=== PATIENT | female | born 1935 | race Caucasian/White ===

== ENCOUNTER → 2019-12-12 | Outpatient (CLI) | payer MEDICARE ==
[~2019-12-12] MED LIST: CARV3.1210 PO; CELE200C PO; CLOP75TA PO; HYDR-3164 PO; LEVO75TA5 PO; SIMV40TA18 PO
--- NOTE | 2019-12-12 10:51 | KCIC ---
LUMBAR SPINE WO CONTRAST Date: 12/12/2019 9:30 AM Indication: Low back pain, radiculopathy, lower extremity weakness Comparison: None. Technique: Multi-planar multi-weighted magnetic resonance imaging of the lumbar spine was performed without intravenous contrast using the standard lumbar spine protocol. FINDINGS: Motion artifact degrades image quality on all sequences. Straightening of the lumbar lordosis. 4 mm anterolisthesis at L4-5. No acute fracture. Mild to moderate multilevel degenerative disc desiccation and disc height loss. No marrow replacing process to suggest malignancy. The conus terminates at a normal level. No abnormal signal is seen within the visualized distal spinal cord. No clumping of intrathecal nerve roots. No soft tissue abnormality in the visualized abdomen or pelvis. T12-L1: No disc bulge. No facet arthropathy. No significant spinal stenosis or neural foraminal narrowing. L1-L2: No disc bulge. No facet arthropathy. No significant spinal stenosis or neural foraminal narrowing. L2-L3: Disc bulge. Mild facet arthropathy. No significant spinal stenosis or neural foraminal narrowing. L3-L4: Disc bulge. Mild facet arthropathy. No significant spinal stenosis. Mild bilateral neural foraminal narrowing. L4-L5: Disc bulge. Moderate right greater than left facet arthropathy. Mild spinal stenosis. Mild bilateral neural foraminal narrowing. L5-S1: Disc bulge. Mild facet arthropathy. No significant spinal stenosis or neural foraminal narrowing. IMPRESSION: [id number] lumbar spondylosis, as detailed above. No high-grade spinal canal stenosis. Electronically signed by: Edvin Metz MD (12/12/2019 10:49 AM) [id number]
== END | disposition home or self-care (01) ==
LOC: KCIC MRI 09:17
PROVIDERS: ATTEND Family Medicine
DX: M47.26 Other spondylosis with radiculopathy, lumbar region (principal); M51.16 Intervertebral disc disorders with radiculopathy, lumbar region; M12.88 Other specific arthropathies, not elsewhere classified, other specified site; M40.46 Postural lordosis, lumbar region; M53.3 Sacrococcygeal disorders, not elsewhere classified
CPT/HCPCS: 72148

== ENCOUNTER → 2019-12-15 | Outpatient (CLI) | payer MEDICARE, OTHER ==
--- NOTE | 2019-12-15 15:22 | PAIN ---
DATE OF SERVICE: 12/15/2019 INITIAL CONSULTATION FOR PAIN CLINIC CHIEF COMPLAINT: Low back and left lower extremity pain. HISTORY OF PRESENT ILLNESS: This is an 84-year-old female who presents with history of pain in the low back, left lower extremity since about September of this year. The patient reports no specific injury or action that she is aware of, but she has been transporting back and forth prior to that for some followup with previous lung cancer and radiation treatments and was getting in and out of a fairly tall van for transport at multiple times and this has exacerbated some of the pain in her low back and now traveling into her left posterior gluteus, posterolateral thigh, lateral anterior thigh on the left side only. The patient reports significant weakness; however, in the left leg and she is walking with a significant antalgic gait favoring the left lower extremity. The patient reports it is better with sitting or lying down, but still can awaken her from sleep about once at night. The patient reports it does not affect her bowel or bladder control, but does affect her ability to walk significantly. She is using a cane and a walker at times to ambulate. The patient reports no complete loss of function, but significant fatigability of the lower extremity on the left. The patient reports it is sharp and stabbing across the back, throbbing, aching, shooting into the leg, intermittent in intensity, but worse with walking, standing, changing positions, better with sitting or lying down, again radiating to the left lower extremity, aching and cold at times. The patient rates her disability rating from 0-10, 10 being the worst, is a 9 with family and home responsibilities, recreation, social activity and self-care, 8 with life support activities. The patient did have an MRI scan of the lumbar spine showing some [id number] lumbar spondylosis without high-grade stenosis at L3-L4 and L4-L5 with mild facet arthropathy and moderate right greater than left facet arthropathy, mild spinal stenosis at L4-L5 with mild bilateral neural foraminal narrowing and mild bilateral neural foraminal narrowing at the L3-L4 level as well. PAST MEDICAL HISTORY: Significant for hearing loss, wearing hearing aids, cataracts, glasses, history of breast cancer as well as lung cancer. Quit smoking in September of this year, 60+ pack year history prior to that, history of myocardial infarction in 1993. Previous blood clots. History of arthritis. PREVIOUS SURGERY: Include mastectomy on the left and heart catheterization as well as radiation treatment for the lung cancer. CURRENT MEDICATIONS: Include Plavix, simvastatin, carvedilol, hydrocodone, Celebrex, levothyroxine. ALLERGIES: The patient has no known drug allergies. FAMILY HISTORY: Significant for heart disease and pancreatic cancer. SOCIAL HISTORY: The patient does not smoke, quit in September of this year. Previous [id number] history prior to this September. Drinks alcohol very rarely. Does not use any illegal, illicit or recreational drugs. The patient reports she is , lives locally in [place], [place] and is currently retired. REVIEW OF SYSTEMS: The patient's review of systems is positive for those items mentioned in history of present illness. All systems reviewed and otherwise negative. It is complete, full and well documented on the patient's chart. PHYSICAL EXAMINATION: VITAL SIGNS: The patient's blood pressure 143/81, pulse 94, respirations 18, temperature 97.8 degrees Fahrenheit, height is 5 feet 4 inches, weight is 105 pounds. GENERAL: The patient is awake, alert, oriented, appropriate, very pleasant demeanor. The patient is accompanied by her daughter. HEENT: Shows normocephalic, atraumatic. Extraocular movements are intact and symmetrical. Oral cavity shows mucous membranes moist and pink. Dentition is intact. NECK: Shows anterior throat supple without palpable lymphadenopathy noted. Swallow reflex symmetrical. CHEST: Shows normal on inspection. Breath sounds are clear bilaterally. HEART: Shows S1, S2 clear. No murmurs auscultated. ABDOMEN: Soft, nontender, nondistended. No palpable organomegaly is noted. No rebound or guarding demonstrated. BACK: Shows spine grossly in the midline. Normal appearing thoracic kyphosis and slight flattening of lumbar lordotic curvature. Lumbar paraspinous muscle shows symmetrical on inspection, on palpation shows some moderate tenderness diffusely bilaterally going diffusely without significant radiation. The patient has good rotational motion of lumbar spine, both laterally as well as extension and flexion without significant pain, no tenderness over the spinous processes, sacrum or sacroiliac regions. EXTREMITIES: Lower extremity deep tendon reflexes at 2+ patellar, 1+ tendo-calcaneus tendons. Motor exam is approximately 5/5 on the right with dorsiflexion, extension, quadriceps and hamstring flexion and 4/5 on the left with dorsiflexion, extension, quadriceps and hamstring flexion is approximately 2 on a scale of 5. The patient is using both of her hands to help lift her leg off of the chair from the seated position. The patient is almost unable to do this with any movement with quadriceps flexion on the left side without assistance. The patient is able to stand, but has difficulty rising from a seated position. She is putting all of her weight on her right leg and is using a cane to ambulate with a significant limping gait favoring the left lower extremity, but is walking on her own power. SKIN: Shows warm and dry, good turgor. No edema. No sores, rashes or bruising throughout. IMPRESSION: 1. This is an 84-year-old female with approximate 2-month history of low back and left lower extremity pain. 2. MRI scan of lumbar spine as noted. 3. Arthritis. 4. History of both breast cancer and lung cancer. PLAN: Options were discussed with the patient and her daughter including conservative medical managements, physical therapies and interventional techniques and she would like to pursue interventional techniques. We discussed a lumbar epidural steroid injection using description as well as anatomical models to describe the procedure. We will check with her prescribing physician to hold the Plavix for 7 days prior to potential injection. In the meantime, we will try Medrol Dosepak with instructions, side effects to be aware of discussed with both the patient and her daughter. If not significantly improved, we will have her hold the Plavix if deemed safe and appropriate from her prescribing physician for lumbar epidural steroid injection after that time. QUIN ROTH MD DR: SUMI/janet JOB#: [id number] / [id number]
== END | disposition home or self-care (01) ==
LOC: PNCL 12:45 → EDUNIT# 13:00
PROVIDERS: ATTEND Anesthesiology
DX: M54.5 Low back pain (principal); M79.605 Pain in left leg; M19.90 Unspecified osteoarthritis, unspecified site; M54.10 Radiculopathy, site unspecified; M62.81 Muscle weakness (generalized); Z85.3 Personal history of malignant neoplasm of breast; Z85.118 Personal history of other malignant neoplasm of bronchus and lung; Z90.12 Acquired absence of left breast and nipple
CPT/HCPCS: G0463

== ENCOUNTER → 2019-12-27 | Outpatient (CLI) | payer MEDICARE, OTHER ==
[~2019-12-27] MED LIST changes: +IOHEXOL 180 MG/ML 10 ML VIAL. ONE; +methylPREDNISolone ACETATE 40 MG/ML VIAL. ONE; +methylPREDNISolone ACETATE 80 MG/ML VIAL. ONE
--- NOTE | 2019-12-27 14:46 | PAIN ---
DATE OF SERVICE: 12/27/2019 PROGRESS NOTE FOR PAIN CLINIC DIAGNOSES: Lumbar radiculopathy with lumbar degenerative disk disease and lumbar spondylosis. HISTORY OF PRESENT ILLNESS: The patient is an 84-year-old female who returns for followup status post initial evaluation and clearance to hold her Plavix. She has been off of this now for 7 days and returns today with her daughter reporting significant pain in the low back, left lower extremity, posterior gluteus, posterior thigh and calf, particularly with weightbearing, standing and walking. The patient reports that 10 on a scale of 10 at its worst, 7-8 on average, 7 at its least and is an 8 today. It is aching, it is sharp, stabbing, radiating, becoming unbearable, on and off in intensity, though much worse with walking, standing, better with sitting or lying down, does not awaken her from sleep at night, generally feels better with sitting. The patient reports no new motor or sensory deficits, no new bowel or bladder incontinence or other complaints. PHYSICAL EXAMINATION: VITAL SIGNS: The patient's blood pressure is 172/70, pulse 81, respirations are 18, temperature is 98.0 degrees Fahrenheit, height is 5 feet 4 inches, weight is 110 pounds. GENERAL: The patient is awake, alert, oriented, appropriate, very pleasant demeanor. HEENT: Head shows normocephalic, atraumatic. Extraocular movements are intact and symmetrical. Oral cavity: Mucous membranes moist and pink. Dentition is intact. NECK: Shows anterior throat supple without palpable lymphadenopathy noted. Swallow reflex symmetrical. CHEST: Shows normal on inspection. Breath sounds are clear bilaterally. HEART: Shows S1, S2 clear. No murmurs auscultated. ABDOMEN: Soft, nontender, nondistended. No palpable organomegaly is noted. No rebound or guarding demonstrated. BACK: Shows spine grossly in the midline. Normal appearing thoracic kyphosis and minor flattening of lumbar lordotic curvature. Lumbar paraspinous muscle shows symmetrical on inspection, with palpation shows some mild tenderness diffusely throughout the upper, middle and lower distribution of paraspinous muscles bilaterally. The patient does show good rotational motion both laterally greater than 10 degrees right and left as well as extension greater than 10 degrees, forward flexion 45 degrees without significant pain reported. EXTREMITIES: Lower extremities show deep tendon reflexes at 1+ in the patellar and tendo calcaneus tendons. Motor exam is strong with 4 on a scale of 5 on the right and 2 on a scale of 5 with left quadriceps and hamstring flexion is 4/5 on the right, dorsiflexion and extension is intact at 4/5 bilaterally. Peripheral pulses are 1+ posterior tibia. The patient does have some fairly significant edema in the left ankle approximately 2+ pitting and right side is 1+. Options were discussed with the patient and the patient's daughter who accompanied her to visit today and we will proceed with a first in this series of lumbar epidural steroid injection today with fluoroscopic guidance. Risks were discussed including but not limited to bleeding, infection, possibility of epidural hematoma, subsequent neurological compromise, dural puncture, headaches, spinal cord and/or nerve damage, side effects of steroid medication and poor results regarding pain control. The patient understands and wished to proceed. The patient will restart Plavix tomorrow as instructed, counseled on activity level and side effects to be aware of.. DIAGNOSIS: Lumbar radiculopathy with lumbar degenerative disk disease and lumbar spondylosis. PROCEDURE: Lumbar epidural steroid injection, translaminar approach, L4-L5 level using C-arm fluoroscopic guidance under sterile prep and drape using local anesthetic. MEDICATION INJECTED: A total of 120 mg Depo-Medrol plus 10 mL of preservative-free normal saline and 2 mL of contrast. CONDITION AT DISCHARGE: Stable. The patient tolerated procedure well, had no complications. QUIN ROTH MD DR: SUMI/janet JOB#: [id number] / [id number]
== END ==
LOC: PNCL 12:33
PROVIDERS: ATTEND Anesthesiology
DX: M51.16 Intervertebral disc disorders with radiculopathy, lumbar region (principal); M47.816 Spondylosis without myelopathy or radiculopathy, lumbar region
CPT/HCPCS: 62323; J1030; J1040; Q9965

== ENCOUNTER → 2020-01-17 | Outpatient (CLI) | payer MEDICARE, OTHER ==
[~2020-01-17] MED LIST changes: +ACET500T68 PO; -IOHEXOL 180 MG/ML 10 ML VIAL. ONE; -methylPREDNISolone ACETATE 40 MG/ML VIAL. ONE; -methylPREDNISolone ACETATE 80 MG/ML VIAL. ONE
--- NOTE | 2020-01-17 13:22 | PAIN ---
DATE OF SERVICE: 01/17/2020 PROGRESS NOTE FOR PAIN CLINIC DIAGNOSES: Lumbar radiculopathy with lumbar degenerative disk disease and lumbar spondylosis. HISTORY OF PRESENT ILLNESS: The patient is an 84-year-old female who returns for followup status post lumbar epidural steroid injection x 1. The patient reports about 30% improved overall. She also has physical therapy, coming to her home and has been working with her for about the past week. The patient reports she feels that she is doing better, but it is a very slow progress. She still has some significant difficulty with raising and movement of her left leg as she had previously, but reports that the shot did help with the shooting pain as it is much less frequent in the left leg and the therapy is little easier to perform as well. The patient reports it does not awaken her from sleep at night very frequently, but it does usually only once every 6-8 hours. The patient reports she has been increasing her activity to walk with greater ease and comfort, but again is still using a walker and uses a wheelchair when she can. The patient reports her pain is an 8 on a scale of 10 at its worst, 5 on average and a 2 at its least and is a 5 today. The patient reports it is cramping and tight in the low back and left lower extremity, posterior gluteus, posterior lateral thigh and anterior thigh, again with significant weakness, which is very slowly improving with physical therapy. PHYSICAL EXAMINATION: VITAL SIGNS: The patient's blood pressure is 141/81, pulse 91, respirations 16, temperature 97.6 degrees Fahrenheit, height is 5 feet 4 inches, and weight is 100 pounds. GENERAL: The patient is awake, alert, oriented, appropriate, very pleasant demeanor. The patient is accompanied by her daughter. HEENT: Shows normocephalic, atraumatic. Extraocular movements are intact and symmetrical. Oral cavity shows mucous membranes moist and pink. Dentition is intact. NECK: Shows anterior throat supple without palpable lymphadenopathy noted. Swallow reflex symmetrical. CHEST: Shows normal on inspection. Breath sounds are clear bilaterally. HEART: Shows S1, S2 clear. No murmurs auscultated. ABDOMEN: Soft, nontender, nondistended. BACK: Shows spine grossly in the midline, slight exaggerated thoracic kyphosis, minor flattening of lumbar lordotic curvature. Lumbar paraspinous muscle shows symmetrical on inspection, on palpation shows some moderate tenderness diffusely throughout the upper, middle and lower distribution of paraspinous muscles bilaterally, but without asymmetry, without atrophy, hypertrophy and without trigger points or radiation. The patient has good rotational motion of lumbar spine, both laterally as well as extension and flexion without significant pain. EXTREMITIES: Lower extremities show deep tendon reflexes 1+ in the patellar and tendo calcaneus tendons. Motor exam is approximately 4 on a scale of 5 on the right and 2-3 on the left with quadriceps and hamstring flexion with the patient is using her hands to lift her left leg in a seated position. She can lift it more easily when standing, but still much weaker than the right side. Peripheral pulses are 1+ posterior tibia. No peripheral edema bilaterally. Options were discussed with the patient. The patient's old chart was reviewed as her current medication regimen updated. Current review of systems updated today as well. We will hold on any further injections at this time as the patient would like to continue with physical therapy currently and see how she does with this first. We discussed holding her Plavix in the future if necessary for a repeat interventional techniques as well as discussed with her daughter. They understand and will have it followup on as needed basis at this time. The patient will continue with physical therapy and encouraged her to maintain walking activities as well as nutritional maintenance with meals as well. QUIN ROTH MD DR: SUMI/janet JOB#: [id number] / [id number]
== END | disposition home or self-care (01) ==
LOC: PNCL 10:59
PROVIDERS: ATTEND Anesthesiology
DX: M51.16 Intervertebral disc disorders with radiculopathy, lumbar region (principal); M47.26 Other spondylosis with radiculopathy, lumbar region
CPT/HCPCS: G0463